=== PATIENT | male | born 1955 | race Hispanic/Latino ===

== ENCOUNTER 2023-09-19 02:47 | Emergency (ER) | payer MEDICARE ==
[~2023-09-19] VITALS: Ht 175.3 cm; Wt 67.6 kg
[2023-09-19] MEDS: KETOROLAC 60 MG VIAL (30MG/ML) IM ONE (03:06)
[2023-09-19] MEDS ORDERED: KETO10 PO (03:47)
[2023-09-19 03:57] VITALS: BP 149/81; PULSE 98; RESP 18; O2SAT 97
== END 2023-09-19 03:58 | disposition home or self-care (01) ==
LOC: EDH 02:47
DX: S43.491A Other sprain of right shoulder joint, initial encounter (principal); X58.XXXA Exposure to other specified factors, initial encounter; Y93.89 Activity, other specified; Y92.098 Other place in other non-institutional residence as the place of occurrence of the external cause; Y99.8 Other external cause status
CPT/HCPCS: 99283; 29105; 73030; 96372; J1885